=== PATIENT | male | born 1990 | race Caucasian/White ===

== ENCOUNTER 2016-11-11 10:45 | Emergency (ER) ==
[2016-11-11 10:53] VITALS: BP 146/95; TEMP 97.6; BMI 29.8
[2016-11-11] MEDS ORDERED: TORADOL IM STA (11:10)
[2016-11-11] MEDS ORDERED: AUGMENTIN 500-125 MG TAB PO STA (11:10)
--- NOTE | 2016-11-11 11:14 | ED.PDOC ---
General ED Provider: Dr. BOB CONLEY Chief Complaint: Tooth Problem Stated Complaint: Left upper tooth, broken souple weeks ago, but it started hurting since night, swollen gums Time Seen by Physician: 11:10 Mode of Arrival: Walk-In Information Source: Patient Primary Care Provider: ALAYNA BECKHAM Nursing and Triage Documentation Reviewed and Agree: Yes EENT Complaint Exam - Dental/Oral Complaint/Exam Mechanism of Injury: No known trauma Symptoms Are: Still present Timing: Constant Initial Severity: Moderate Current Severity: Severe Character: Reports: Aching, Throbbing Aggravating: Reports: Cold, Chewing Alleviating: Reports: None Associated Signs and Symptoms: Reports: Swelling Cardiac Risk Factors: Reports: None Dental/Oral Surgical History: Reports: None Tooth Findings: Present: Percussion tenderness, Gross decay, Dental fracture Cervical Lymphadenopathy Present: No Facial Swelling Present: Yes Bleeding Present: No Teeth Picture: 1 - fractured and caries, swollen gum Differential Diagnoses: Dental Abcess, Dental Caries, Fractured Tooth Review of Systems - Review Of Systems Constitutional: Reports: No symptoms Eyes: Reports: No symptoms Ears, Nose, Mouth, Throat: Reports: No symptoms Respiratory: Reports: No symptoms Cardiac: Reports: No symptoms GI: Reports: No symptoms : Reports: No symptoms Musculoskeletal: Reports: No symptoms Skin: Reports: No symptoms Neurological: Reports: No symptoms Endocrine: Reports: No symptoms Hematologic/Lymphatic: Reports: No symptoms All Other Systems: Reviewed and Negative Past Medical History - Past Medical History Previously Healthy: Yes Endocrine: Reports: None Cardiovascular: Reports: None Respiratory: Reports: None Hematological: Reports: None Gastrointestinal: Reports: GERD Genitourinary: Reports: None Neuro/Psych: Reports: None Musculoskeletal: Reports: None Cancer: Reports: None Other Pertinent Past Medical History: gerd gallbladder - Surgical History General Surgical History: Reports: Cholecystectomy - Family History Family History: Reports: Unknown - Social History Smoking Status: Current every day smoker, Light tobacco smoker Smoking Cessation Counseling Time: > 3 min - 10 min Hx Substance Use: No Alcohol Screening: None Physical Exam - Physical Exam Appearance: Well-appearing, Well-nourished Pain Distress: Moderate Eyes: ALEJANDRO, EOMI, Conjunctiva clear ENT: Ears normal, Nose normal, Oropharynx normal Respiratory: Airway patent, Breath sounds clear, Breath sounds equal, Respirations nonlabored Cardiovascular: RRR, Pulses normal, No rub, No murmur GI/: Soft, Nontender, No masses, Bowel sounds normal, No Organomegaly Musculoskeletal: Normal strength, ROM intact, No edema, No calf tenderness Skin: Warm, Dry, Normal color Neurological: Sensation intact, Motor intact, Reflexes intact, Cranial nerves intact, Alert, Oriented Psychiatric: Affect appropriate, Mood appropriate Critical Care Note - Critical Care Note Total Time (mins): 0 Course - Course Orders, Labs, Meds: Orders Category Date Time Status Amoxicillin/Potassium Clav [Augmentin 500-125 mg Tab] MEDS 11/11/16 11:10 Stat 1 tab PO ONCE STA Ketorolac Tromethamine [Toradol] MEDS 11/11/16 11:10 Stat 60 mg IM ONCE STA Medications Generic Name Dose Route Start Last Admin Trade Name Freq PRN Reason Stop Dose Admin Amoxicillin/Clavulanate Potassium 1 tab 11/11/16 11:10 Augmentin 500-125 Mg Tab PO 11/11/16 11:11 ONCE STA Ketorolac Tromethamine 60 mg 11/11/16 11:10 Toradol IM 11/11/16 11:11 ONCE STA Vital Signs: Temp Pulse Resp BP Pulse Ox 11/11/16 10:46 97.6 F 93 H 20 146/95 H 98 Departure - Departure Time of Disposition: 11:14 Disposition: HOME SELF-CARE Discharge Problem: Toothache, Dental caries, Gingivitis Instructions: Dental Caries (ED) Condition: Stable Pt referred to PMD for follow-up: Yes Additional Instructions: has f/u with dentist. take medications with food. Prescriptions: Hydrocodone Bit/Acetaminophen [[place] 7.5-325] 1 each PO Q8HR #14 tablet Amoxicillin/Potassium Clav [Augmentin 500-125 mg Tab] 1 tab PO Q12HR #20 tablet Allergies/Adverse Reactions: Allergies No Known Allergies Allergy (Verified 08/04/16 17:49) Home Medications: Ambulatory Orders Ranitidine HCl [Zantac 75] 75 mg PO DAILY PRN 08/04/16 Amoxicillin/Potassium Clav [Augmentin 500-125 mg Tab] 1 tab PO Q12HR #20 tablet 11/11/16 Hydrocodone Bit/Acetaminophen [[place] 7.5-325] 1 each PO Q8HR #14 tablet Disposition Discussed With: Patient
== END 2016-11-11 11:59 | disposition home or self-care (01) ==
LOC: ED 10:45
DX: K02.7 Dental root caries (principal); K05.10 Chronic gingivitis, plaque induced; S02.5XXA Fracture of tooth (traumatic), initial encounter for closed fracture; K08.89 Other specified disorders of teeth and supporting structures; F17.210 Nicotine dependence, cigarettes, uncomplicated
CPT/HCPCS: 96372; 99282